=== PATIENT | female | born 1990 | race Caucasian/White ===

== ENCOUNTER 2021-05-30 21:52 | Inpatient (IN) ==
[2021-05-30] MEDS ORDERED: Metoclopramide 10 MG/2 ML VIAL IVP PRN (22:21)
[2021-05-30] MEDS ORDERED: Naloxone 0.4 MG/ML INJ IVP PRN (22:21)
[2021-05-30] MEDS ORDERED: *HR* Nalbuphine 10 MG/ML AMPUL IV PRN (22:21)
[2021-05-30] MEDS ORDERED: Ondansetron 4 MG/2 ML VIAL IVP PRN (22:21)
[2021-05-30] MEDS ORDERED: Famotidine 20 MG/2 ML VIAL IVP PRN (22:21)
[2021-05-30] MEDS ORDERED: Ringers Solution, Lactated 1,000 ML IVC SCH (22:30)
[2021-05-30] MEDS ORDERED: Oxytocin 20 units/ LR 1000 mL 20 UNIT/1,000 ML BAG IVC SCH (23:00)
[2021-05-30 23:14] LABS: Basophils % 0.2 %; Eosinophils # 0.1 K/mcL (0.0-0.6); Eosinophils % 0.9 %; Hematocrit 29.6 % (35.3-44.9); Hemoglobin 10.1 g/dL (11.5-15.4); Immature Granulocytes % 0.5 % (0-4); Lymphocytes # 2.1 K/mcL (0.6-4.6); Lymphocytes % 21.9 %; Mean Corpuscular HGB Conc 34.1 g/dL (31.6-35.5); Mean Corpuscular Hemoglobin 27.8 pg (28.0-33.3); Mean Corpuscular Volume 81.5 fL (83.0-100.0); Mean Platelet Volume 10.6 fL (9.4-12.4); Monocytes # 0.7 K/mcL (0.0-1.3); Monocytes % 7.7 %; Neutrophils # 6.4 K/mcL (1.6-8.9); Platelet Count 202 K/mcL (140-400); Red Blood Count 3.63 M/mcL (3.82-4.97); Red Cell Distribution Width 13.3 % (11.5-14.5); Segmented Neutrophils % 68.8 %; White Blood Count 9.4 K/mcL (4.3-11.1)
[2021-05-30 23:23] LABS: Amphetamine Screen,Urine Negative ng/mL (Cutoff=1000); Barbiturate Screen,Urine Negative ng/mL (Cutoff=200); Benzodiazepines Screen,Urine Negative ng/mL (Cutoff=200); Cannabinoid Screen,Urine Negative ng/mL (Cutoff = 50); Cocaine Screen,Urine Negative ng/mL (Cutoff= 300); Opiate Screen,Urine Negative ng/mL (Cutoff=300); Phencyclidine Screen,Urine Negative ng/mL (Cutoff=25); Protein/Creatinine Ratio,Urine 0.12 mg/mg (0.00-0.20)
[2021-05-30 23:33] LABS: Alanine Aminotransferase 9 Units/L (7-52); Aspartate Amino Transferase 13 Units/L (13-39); BUN/Creatinine Ratio 16 (6-26); Blood Urea Nitrogen 9 mg/dL (6-20); Glucose 114 mg/dL (70-105); Lactate Dehydrogenase 142 Units/L (140-271); Uric Acid 3.8 mg/dL (2.3-7.6); eGFR For African Americans > 60 (> 60); eGFR For Non-African Americans > 60 (> 60)
[2021-05-31] MEDS ORDERED: Famotidine 20 MG/2 ML VIAL IVP ONE (02:56)
[2021-05-31] MEDS ORDERED: *HR* FentaNYL (PF) 100 MCG/2 ML VIAL EP ONE (05:30)
[2021-05-31] MEDS ORDERED: Ropivacaine/PF 0.2% 20 ML VIAL EP ONE (05:30)
[2021-05-31] MEDS ORDERED: Epidural Premix (fent/bupiv) 110 ML EP SCH (05:30)
[2021-05-31] MEDS ORDERED: EPHEDrine 50 MG/ML VIAL IVP PRN (05:30)
[2021-05-31] MEDS ORDERED: *HR* FentaNYL (PF) 100 MCG/2 ML VIAL ONE ×2 (09:39→10:01)
[2021-05-31] MEDS ORDERED: Ibuprofen 600 MG TABLET PO ONE (10:24)
[2021-05-31] MEDS ORDERED: Oxytocin 20 units/ LR 1000 mL 20 UNIT/1,000 ML BAG IVC SCH (11:44)
[2021-05-31] MEDS ORDERED: Measles/Mumps/Rubella Vacc 0.5 ML VIAL SQ PRN (11:44)
[2021-05-31] MEDS ORDERED: Benzocaine/Menthol 56 GM AEROSOL SPRAY TP PRN (11:44)
[2021-05-31] MEDS ORDERED: Lanolin 7 G OINT...G. TP PRN (11:44)
[2021-05-31] MEDS ORDERED: Acetaminophen 325 MG TABLET PO PRN (11:44)
[2021-05-31] MEDS: Ibuprofen 600 MG TABLET PO PRN ×2 (12:04→17:43)
[2021-06-01] MEDS: Ibuprofen 600 MG TABLET PO PRN ×2 (00:39→08:01)
[2021-06-01 07:29] VITALS: BP 110/74; PULSE 79; TEMP 98; O2SAT 96
[2021-06-01] MEDS ORDERED: Prenatal Vit/FA 1 EACH TABLET PO SCH (09:00)
== END 2021-06-01 12:26 | disposition home or self-care (01) | DRG 560 ==
LOC: 1NENULAB 21:52 → 1NENUOBS 05-31 12:38
PROVIDERS: ADMIT Advanced Practice Midwife; ATTEND Advanced Practice Midwife